=== PATIENT | male | born 1970 | race Caucasian/White ===

== ENCOUNTER 2021-10-14 08:33 | Outpatient (CLI) | payer OTHER, SELFPAY ==
--- NOTE | 2021-10-14 08:39 | US_ITS ---
WS: [id number] ULTRASOUND RENAL TECHNIQUE: Ultrasound examination of both kidneys. CLINICAL INFORMATION: ASYMPTOMATIC MICROSCOPIC HEMATURIA COMPARISON: None. FINDINGS: RIGHT: Right kidney is normal in size and appearance. Echogenicity: Normal. Cortical thickness: 2.5 cm; Normal. Hydronephrosis: None. Perinephric fluid: None. Right kidney measures: 11.6 cm x 5.8 cm x 5.3 cm. LEFT: Left kidney is normal in size and appearance. Echogenicity: Normal. Cortical thickness: 2.6 cm; Normal. Hydronephrosis: None. Perinephric fluid: None. Left kidney measures: 11.8 cm x 6.4 cm x 6.3 cm. Normal visualized aorta. Normal bladder. Normal size prostate measures 2.8 x 3.8 x 2.9 cm. Bilateral ureteral jets visualized. Prevoid bladder volume 78 cc. Postvoid bladder volume 5 cc. US/US renal BI* [id number] IMPRESSION: Normal renal ultrasound.
== END 2021-10-14 08:34 | disposition home or self-care (01) ==
LOC: US 08:35
PROVIDERS: PCP Family Medicine; Visit Provider Registered Nurse
DX: R31.21 Asymptomatic microscopic hematuria (principal)
CPT/HCPCS: 76770

== ENCOUNTER → 2025-04-03 10:56 | Outpatient (BNVA) | payer OTHER, SELFPAY | PROVIDERS: PCP Family Medicine; Visit Provider Internal Medicine | DX: M79.7 Fibromyalgia (principal); E29.1 Testicular hypofunction | CPT/HCPCS: 36415; 80053; 80061; 84153; 84403; 85025 ==

== ENCOUNTER 2025-04-07 07:53 | Outpatient (CLI) | payer OTHER, SELFPAY | END 2025-04-07 07:54 | disposition home or self-care (01) | PROVIDERS: PCP Family Medicine; Visit Provider Internal Medicine | DX: E29.1 Testicular hypofunction (principal) | CPT/HCPCS: 84403 ==

== ENCOUNTER 2025-04-28 07:58 | Outpatient (CLI) | payer OTHER, SELFPAY ==
[2025-04-28 08:19] LABS: Basophils % 0.5 %; Eosinophils # 0.4 10^3/uL (0.0-0.8); Eosinophils % 6.6 %; Hematocrit 46.3 % (37-53); Lymphocytes # 2.5 10^3/uL (0.8-4.8); Lymphocytes % 43.4 %; Mean Corpuscular HGB Conc 35.2 g/dL (30-55); Mean Corpuscular Hemoglobin 30.8 pg (27-33); Mean Corpuscular Volume 87.5 fl (82-101); Mean Platelet Volume 9.6 fL (7.4-10.4); Monocytes # 0.4 10^3/uL (0.2-0.9); Monocytes % 6.3 %; Neutrophils # 2.46 10^3/uL (1.8-7.7); Nucleated Red Blood Cells % 0 %; Platelet Count 245 10^3/cmm (157-399); Red Blood Count 5.29 10^6/uL (3.85-5.65); White Blood Count 5.72 10^3/uL (3.29-11.43)
[2025-04-28 08:48] LABS: Alanine Aminotransferase 30 U/L (0-41); Albumin Level 4.3 g/dL (3.5-5.2); Alkaline Phosphatase 59 U/L (40-130); Anion Gap 16.1 (5-19); Aspartate Amino Transferase 23 U/L (0-40); Blood Urea Nitrogen 18 mg/dL (6-20); Calcium 8.9 mg/dL (8.5-10.5); Carbon Dioxide 25 mmol/L (22-29); Chloride 100 mmol/L (98-107); Chol HDL Ratio 6.58 mg/dL (1.0-5.00); Cholesterol 171 mg/dL (0-200); Globulin 2.8 g/dL (1.3-4.6); Glomerular Filtration Rate 77.9 mL/min (90-130); Glucose 142 mg/dL (65-115); HDL Cholesterol 26 mg/dL (60-100); LDL Cholesterol Calculated 94 mg/dL (50-129); LDL HDL Ratio 3.62 RATIO (0.00-3.22); Osmolality Calculated 288 mOsm/kg (285-295); Potassium 4.1 mmol/L (3.5-5.1); Prostate Specific Antigen 0.471 ng/mL (0-4); Sodium 137 mmol/L (136-145); Testosterone Total 117.4 ng/dL (193-740); Total Bilirubin 0.6 mg/dL (0.15-1.2); Total Protein 7.1 g/dL (6.6-8.7); Triglycerides 253 mg/dL (0-150)
== END 2025-04-28 07:59 | disposition home or self-care (01) ==
PROVIDERS: PCP Family Medicine; Visit Provider Internal Medicine
DX: M79.7 Fibromyalgia (principal); E29.1 Testicular hypofunction
CPT/HCPCS: 80053; 80061; 84153; 84403; 85025

== ENCOUNTER 2025-05-17 08:29 | Outpatient (CLI) | payer OTHER, SELFPAY ==
[2025-05-22 02:06] LABS: Testosterone, Free 94.3 pg/mL (46.0-224.0)
== END 2025-05-17 08:30 | disposition home or self-care (01) ==
PROVIDERS: PCP Family Medicine; Visit Provider Internal Medicine
DX: E29.1 Testicular hypofunction (principal); M79.7 Fibromyalgia
CPT/HCPCS: 36415; 84270; 84402; 84403

== ENCOUNTER → 2025-07-19 08:45 | Outpatient (BNVA) | payer OTHER, SELFPAY | PROVIDERS: PCP Family Medicine; Visit Provider Internal Medicine | DX: E29.1 Testicular hypofunction (principal); E11.9 Type 2 diabetes mellitus without complications; R53.83 Other fatigue | CPT/HCPCS: 36415; 80053; 80061; 84153; 84403; 85025 ==